=== PATIENT | male | born 1990 | race Hispanic/Latino ===

== ENCOUNTER 2018-02-06 10:14 | Emergency (ER) | payer SELFPAY ==
--- NOTE | 2018-02-06 10:23 | ED ANKLE/FOOT INJURY COMPLAINT ---
History of Present Illness General Chief Complaint: Foot or Ankle Injury Stated Complaint: R LOWER LEG PAIN Source: patient, friend Exam Limitations: no limitations Vital Signs & Intake/Output Vital Signs & Intake/Output Vital Signs Date Time Temp Pulse Resp B/P B/P Pulse O2 O2 Flow FiO2 Mean Ox Delivery Rate 02/06 1252 98.6 80 18 132/79 100 Room Air 02/06 1022 98.9 114 15 142/101 97 Room Air Room Air Allergies Coded Allergies: No Known Allergies (02/06/18) Reconcile Medications Ibuprofen 600 MG TABLET 1 TAB PO TID PRN PAIN with food Oxycodone HCl/Acetaminophen (Percocet 5-325 MG Tablet) 5 MG-325 MG TABLET 1-2 TAB PO Q6P PRN PAIN Triage Note: PT TO ED FOR R LEG PAIN S/P TAKING A STEP AND HEARING A POP AND THEN FELT SIGNIFICANT PAIN AFTER. PT UNABLE TO BEAR WAIT. Triage Nurses Notes Reviewed? yes HPI: Patient was playing football and he pushed off and felt a sudden tearing and pop sensation in the posterior aspect of his right ankle. Pain is 10 out of 10. Patient fell to the ground but denies any other injury. The pain is constant. Patient is unable to plantar flex his foot. The pain is sharp and throbbing in nature. Past History Travel History Traveled to [place] past 21 day No Medical History Any Pertinent Medical History? see below for history Neurological: NONE EENT: NONE Cardiovascular: NONE Respiratory: NONE Gastrointestinal: NONE Hepatic: NONE Renal: NONE Musculoskeletal: NONE Psychiatric: NONE Endocrine: NONE Blood Disorders: NONE Cancer(s): NONE SYSTEM DEVELOPMENT MANAGER/Reproductive: NONE Surgical History Surgical History: BR[employer] ACHILD Psychosocial History What is your primary language Moldovan Tobacco Use: Never used ETOH Use: occasional use Illicit Drug Use: denies illicit drug use Family History Hx Contributory? No Review of Systems Review of Systems Constitutional: Reports: no symptoms. Respiratory: Reports: no symptoms. Cardiovascular: Reports: no symptoms. GI: Reports: no symptoms. Musculoskeletal: Reports: see HPI. Neurological/Psychological: Reports: no symptoms. Hematologic/Endocrine: Reports: no symptoms. Immunologic/Allergic: Reports: no symptoms. Physical Exam Physical Exam General Appearance: well developed/nourished, alert, awake, anxious, severe distress Head: atraumatic, normal appearance Eyes: Bilateral: PERRL, EOMI. Ears, Nose, Throat: normal pharynx, normal ENT inspection, hearing grossly normal Neck: normal inspection, supple, full range of motion, no midline tenderness Cardiovascular/Respiratory: normal breath sounds, normal peripheral pulses, regular rate/rhythm, no respiratory distress Gastrointestinal: SOFT, NONTENDER Back: normal inspection, normal range of motion, no vertebral tenderness Leg/Knee/Thigh Left: normal range of motion, normal inspection Leg/Knee/Thigh Right: normal range of motion, normal inspection Ankle Right: DEFECT TO ACHILLIES,UNABLE TO PLANTAR FLEX Foot Right: normal inspection, CAP REFIL <2 SEC,NORMAL SENSATION Neuro/Vascular: normal motor function, normal sensation Tendon: tending function deficit Psychiatric: awake, alert, oriented x 3 Progress Differential Diagnosis: fracture, sprain, ACHILLIES RUPTURE Plan of Care: Orders Procedure Date/time Status XRY-ANKLE 3 OR MORE VIEWS R 02/06 1024 Active Diagnostic Imaging: Viewed by Me: Radiology Read. Discussed w/RAD: Radiology Read. Radiology Impression: no acute abnormality, no fracture, no dislocation Comments: D/W DR. FUENTES, SPLINT, FOLLOW UP Departure Departure Disposition: HOME OR SELF CARE Condition: Stable Clinical Impression Primary Impression: Achilles rupture, right Referrals: Uli MARQUIS,Romel Schrader Additional Instructions: KEEP SPLINT ON USE CRUTCHES CAMERON MOTRIN NEEDED FOR PAIN TAKE PERCOCET NEEDED FORSEVERE PAIN REUTRN IF SYMPTOMS WORSENOR FOR ANY CONCERNS Departure Forms: Customer Survey General Discharge Information Prescriptions: Current Visit Scripts Oxycodone HCl/Acetaminophen (Percocet 5-325 MG Tablet) 1-2 TAB PO Q6P PRN PAIN #20 TAB Ibuprofen 1 TAB PO TID PRN PAIN #20 TAB with food Procedures Splinting Location: RIGHT ANKLE Manual Alignment Performed: Yes Hand-Made Type: orthoglass Splint: POSTERIOR WITH 30 DEGREE PLANTAR FLECTION Splint Applied By: splint applied by me Pre-Proc Neuro Vasc Exam: normal Post-Proc Neuro Vasc Exam: normal
[2018-02-06] MEDS ORDERED: PERCOCET 5-3251 EACH PO (14:38)
[2018-02-06] MEDS ORDERED: IBUPROFEN600 M1 PO (14:38)
[2018-02-06 15:38] VITALS: BP 128/76
--- NOTE | 2018-02-07 08:30 | RADIOLOGY REPORT ---
EXAMINATION: XR ANKLE, RIGHT CLINICAL INFORMATION: Pain while playing football. Question fracture. COMPARISON: No relevant prior imaging. TECHNIQUE: AP, lateral, and mortise views of the right ankle. FINDINGS: There is no acute fracture or dislocation. Joint spaces are maintained. There is no incongruity on the ankle mortise view. No joint effusion. Soft tissues are unremarkable. IMPRESSION: Unremarkable radiographs of the right ankle.
== END 2018-02-06 15:40 ==
LOC: ERH 10:14
DX: S86.011A Strain of right Achilles tendon, initial encounter (principal); X58.XXXA Exposure to other specified factors, initial encounter; Y93.61 Activity, american tackle football; Y92.9 Unspecified place or not applicable
CPT/HCPCS: 73610-RT; 96374; J1885